=== PATIENT | male | born 1935 | race Caucasian/White ===

== ENCOUNTER 2020-02-05 10:24 | Inpatient (IN) ==
--- NOTE | 2020-02-05 16:00 | History & Physical Report ---
Date of Service February 05, 2020 Assessment & Plan (1) Acute congestive heart failure: Suspect volume overload due to drinking too much water (advised to keep well hydrated for his chemotherapy) in setting of probable tenuous fluid balance from ischemic cardiomyopathy. Unknown EF at time of admission Daily weights, I&Os Fluid restrict 1200ml, Low Na, Heart healthy diet TTE - if ischemic cardiomyopathy confirmed consider switching BB to metoprolol or carvedilol Lasix 40mg IV NOW then preliminary QAM with adjustments depending on renal function (2) Coronary artery disease: Notable history of this with prior CABG. Continue ASA, clopidogrel, atenolol, atorvastatin TTE to assess for ischemic cardiomyopathy as above Troponin negative therefore doubtful new ischemic event leading to heart failure (3) Shortness of breath: as above (4) Hypervolemia: as above (5) Pulmonary edema: as above (6) Hypoxia: as above, aim O2 sats > 94% (7) Urinary frequency: If infection and retention not found suspect this is due to his radiation. US KUB once COVID-19 r/o. Consider anti-spasmodic if these are ruled out. (8) Constipation: MiraLAX BID Colace BID (9) Pancytopenia due to antineoplastic chemotherapy: Monitor CBC Consider transfusion if remains SOB despite diuresis to aim Hgb > 9 (10) Anemia in CKD (chronic kidney disease): Procrit due to Saturday, defer to hematology whether to continue this given MGUS diagnosis (11) MGUS (monoclonal gammopathy of unknown significance): Noted history of this (12) Hematuria: Monitor for gross hematuria that can cause urine retention (13) Urothelial carcinoma of bladder: cT2N0, stage II TURBT (Dr Norton on 10/20/2019) Currently undergoing chemoradiation with Gemcitabine (14) Hyperuricemia: Continue allopurinol 100 mg PO daily Stop HCTZ (using lasix instead for diuresis and BP management) (15) Hypertension: Continue nifedipine, atenolol. Suspect acutely elevated due to hypervolemic state which should improve with Lasix. Hold HCTZ as below. (16) DVT prophylaxis: Patient on dual antiplatelets and Plt 54. THerefore will hold chemical CTE prophylaxis at present. Pt declines SCDs Admission and Anticipated Discharge Date Admission Date: February 05, 2020 History of Present Illness Chief Complaint: Shortness of breath, urinary frequency Primary Care Provider: Ulysses Gardner is an 84 year old male with anemia of renal insufficiency, MGUS, high grade invasive urothelial carcinoma undergoing chemoradiation (Gemcitabine, 2 doses to date) who presented to [facility] ([facility]) with shortness of breath and difficulty passing urine. Bladder scan there showed only 200cc PVR on bladder scan and UA only positive for 3+ blood. KUB showed constipation. He was found to be anemic with Hgb 6.9, Plt 50, Cr 1.3 (at baseline), pro-BNP 6266, CO2 23, Na 128. Because of his multiple medical issues and under Dr Mac for his bladder cancer he was transferred to [facility]. Other scans at [facility]. CTA - no findings to suggest PE, bilateral pleural effusions, small in size with associated compressive atelectasis. Patchy area of ill-defined opacity in the right lung consistent with nonspecific inflammatory process, infectious etiology is not excluded. Extensive atherosclerotic changes, small lymph nodes in the mediastinum and hilar region are below the size which is considered clinical significant. KUB - moderate to large stool in colon. Rt venous doppler - negative for DVT. Currently the patient reports ongoing shortness of breath. Worse on exertion. Associated orthopnea. No chest pain, PND, presyncope, syncope, palpatation, cough, fever, chills, known COVID-19 exposure. He has not received any treatment so far. Reports mildly getting worse since seen in the ER earlier this morning. After COVID-19 was ruled out. Patient was reviewed with his daughter at bedside. She reports he was told to keep well hydrated while undergoing chemotherapy therefore his oral intake has significantly increased over the last 2 weeks. He denies any high amounts of salt in his diet. Allergies Allergy/AdvReac Type Severity Reaction Status Date / Time methotrexate Allergy Severe Rash Verified 02/01/20 16:10 folic acid Allergy Intermediate Rash Verified 02/01/20 16:10 ezetimibe [From Vytorin] AdvReac Intermediate Extreme Verified 02/01/20 16:10 Weakness simvastatin [From Vytorin] AdvReac Intermediate Extreme Verified 02/01/20 16:10 Weakness Sulfa (Sulfonamide AdvReac Intermediate Nauseous Verified 02/01/20 16:10 Antibiotics) Home Medications Home Medications Medication Instructions Recorded Confirmed Type allopurinol 100 mg tablet 100 mg PO DAILY 01/05/20 02/01/20 History aspirin 81 mg tablet,delayed 81 mg PO DAILY 01/05/20 02/01/20 History release atenolol 50 mg tablet 50 mg PO DAILY tab 01/05/20 02/01/20 History atorvastatin 20 mg tablet 20 mg PO DAILY 01/05/20 02/01/20 History calcium carbonate 600 mg calcium 600 mg PO DAILY 01/05/20 02/01/20 History (1,500 mg) tablet cholecalciferol (vitamin D3) 125 125 mcg PO DAILY 01/05/20 02/01/20 History mcg (5,000 unit) capsule clopidogrel 75 mg tablet 75 mg PO DAILY 01/05/20 02/01/20 History docusate sodium 100 mg capsule 100 mg PO BID cap 01/05/20 02/01/20 History epoetin sheree 10,000 unit/mL 1,000 unit/kg SUBCUT .q21 days PRN 01/05/20 02/01/20 History injection solution ml famotidine 40 mg tablet 40 mg PO DAILY tab 01/05/20 02/01/20 History finasteride 5 mg tablet 5 mg PO DAILY 01/05/20 02/01/20 History hydrochlorothiazide 25 mg tablet 25 mg PO DAILY 01/05/20 02/01/20 History nifedipine 60 mg tablet,extended 60 mg PO DAILY 01/05/20 02/01/20 History release prednisone 1 mg tablet 1 mg PO DAILY tab 01/05/20 02/01/20 History tamsulosin 0.4 mg capsule 0.4 mg PO DAILY 01/05/20 02/01/20 History ondansetron HCl 8 mg tablet 8 mg PO Q8H 01/25/20 02/01/20 History prochlorperazine maleate 10 mg 10 mg PO BID PRN 01/25/20 02/01/20 History tablet Past Med/Surg History Medical History (Updated 02/06/20 @ 08:29 by Carlos A Chapa MD) Anemia of chronic renal failure Claudication Coronary artery disease CVA (cerebral vascular accident) 2008 - Patient reports only "mini strokes" Gout Hypertension MGUS (monoclonal gammopathy of unknown significance) Peripheral vascular disease Skin cancer Urothelial carcinoma of bladder Surgical History (Updated 01/05/20 @ 09:35 by Kerline Interiano RN) History of ankle surgery 1950's - Left History of colonoscopy 2017 History of coronary artery bypass graft x 3 in 2009 - [place] History of endarterectomy 1990 History of herniorrhaphy 1976 - [place] History of lip cancer and surgery History of surgery 2019 - In [place] - Exploratory Lap - bladder was putting pressure on kidneys causing kidney failure per patient report Family History (Updated 01/05/20 @ 09:40 by Kerline Interiano RN) Mother , Passed age 92 of old age No problems noted. Father , Passed age 67 of Emphysema / Heart Problems No problems noted. Brother , Passed age 71 of throat cancer No problems noted. Brother , Passed age 76 of abdominal aortic aneurysm No problems noted. Sister No problems noted. Sister Colon cancer Sister , Passed age 78 of multiple health issues No problems noted. Daughter No problems noted. Daughter No problems noted. Daughter No problems noted. Daughter No problems noted. Son No problems noted. Social History (Updated 01/05/20 @ 09:43 by Kerline Interiano RN) Smoking Status: Former smoker packs per day: 0.5; Second Hand Exposure: No; Do You Dip or Chew Tobacco: No; Hx Alcohol Use: No Hx Substance Use: No Preferred Language: Moldovan Communication Ability: Effective Visual Impairment: Limited Hearing Ability: Hard of Hearing [employer] [place] Operator Required: No Beliefs That Will Affect Care: None marital status: Current Living Situation: Family Current Living Situation Comment: Son lives with him current occupational status: retired current occupation: Retired [employer] Worker Other Information That Helps Us Care for You: No Feels Safe at Home: Yes Safety Concerns: Feels Safe At This Time Childhood Exposure to Second-Hand Smoke: Yes (Father smoked in home ) caffeine: No during the past year weight has: remained stable Dental Care, Regularly: No Review of Systems Review of Systems: All systems reviewed & are unremarkable except as noted in HPI & below Gastrointestinal: + constipation; no abdominal pain, no belching, no bloating, no heartburn, no nausea, no vomiting, no dysphagia, no cramping, no blood in stools and no melena Physical Exam Constitutional: well developed; + not well nourished and no acute distress Eyes: PERRL, conjunctivae normal, anicteric sclerae ENMT: external ear and nose normal, oropharynx normal Neck: trachea midline, no thyromegaly Respiratory: able to speak in complete sentences; no respiratory distress, no labored breathing, no retractions, does not use accessory muscles, no cough, normal respiratory pattern and expiratory phase not prolonged Auscultation: + diminished lung sounds (bibasal) and + crackles (fine to mid zone on back); no rales, no rhonchi and no wheezes Cardiovascular: Rate/Rhythm: regular rate and regular rhythm Heart Sounds: no murmur Vessels: + JVD (half way to neck) Extremities: normal capillary refill and + pedal edema (trace left, 1+ right to mid shins); no calf tenderness Gastrointestinal (Abdomen): Inspection/Auscultation: + hypoactive bowel sounds Percussion/Palpation: abdomen soft; abdomen nontender, no guarding and abdomen not rigid Musculoskeletal: no cyanosis or clubbing, extremities motor strength 5/5 Skin: no rashes, warm and dry Neurologic: moves all extremities and awake; no focal motor deficits and not confused Speech / Cognition: normal speech Motor/Sensory: no tremor Psychiatric: A+Ox3, euthymic affect Genitourinary: no CVA tenderness Lymphatic: no cervical or axillary lymphadenopathy Results & Data Results & Data ([facility]) Vital Signs (Past 12 Hours) Vital Signs Temp Pulse Resp BP Pulse Ox 02/05/20 14:47 183/64 H 02/05/20 14:17 36.6 C 64 20 204/53 H 94 Diagnostic Findings XR chest 1V portable IMPRESSION: Interstitial thickening consistent with mild interstitial pulmonary edema. ECG Indication: SOB/dyspnea Rate (beats per minute): 59 Rhythm: sinus bradycardia Findings: + RBBB Comparison ECG Date: no prior available Code Status & VTE Plan Code Status DNR in the event of a cardiac arrest Patient deferred to his daughter (Merry) regarding respiratory arrest and intubation which she would like him to have at present VTE Prophylaxis Plan VTE Prophylaxis will be ordered: No Reason for no VTE drug order: Contraindicated Reason for no VTE mechanical prophylaxis: Refusal of treatmnt by pt PG Care Time/CCT Total # of Minutes Spent Total Time Spent with Patient: Total time spent is greater than 50% in coordination of care (as documented) at patient's floor/unit and/or counseling patient: Coding Level of Care Code 69104 Initial Inpt Care Lvl 3 Diagnoses Acute congestive heart failure I50.9 Coronary artery disease I25.10 Shortness of breath R06.02 Hypervolemia E87.70 Pulmonary edema J81.1 Hypoxia R09.02 Urinary frequency R35.0 Constipation K59.00 Pancytopenia due to antineoplastic chemotherapy D61.810; T45.1X5A Anemia in CKD (chronic kidney disease) N18.9; D63.1 MGUS (monoclonal gammopathy of unknown significance) D47.2 Hematuria R31.9 Urothelial carcinoma of bladder C67.9 Hyperuricemia E79.0 Hypertension I10 DVT prophylaxis Z29.9
[2020-02-05 16:06] LABS: Hematocrit (blood only) 21.9 % (42-52); Hemoglobin 7.8 g/dL (14.0-18.0); Mean Corpuscular Hemoglobin 36.4 pg (25-34); Mean Corpuscular Volume 102.3 fL (80-100); RDW Coefficient of Variation 13.9 % (11.5-14.5); RDW Standard Deviation 51.2 fL (36.4-46.3); Red Blood Count 2.14 M/uL (4.7-6.1); White Blood Count 6.76 K/uL (4.8-10.8)
--- NOTE | 2020-02-05 16:08 | XRay Report ---
XR chest 1V portable CLINICAL HISTORY: Shortness of breath, hypoxia COMPARISON STUDY: PET/CT November 28, 2019. FINDINGS: Note is made of median sternotomy wires and mediastinal surgical clips. There is mild cardi omegaly. No pneumothorax is present. There may be a trace left pleural effusion. Interstitial thicken ing is noted. IMPRESSION: Interstitial thickening consistent with mild interstitial pulmonary edema. ACT 112: Negative or not required by law. Electronically signed by: Steven Dudley M.D. 02/05/2020 4:07 PM
[2020-02-05 16:17] LABS: Mean Corpuscular Hgb Conc 35.6 g/dL (32-36)
[2020-02-05 16:18] LABS: Partial Thromboplastin Ratio 1.2; Partial Thromboplastin Time 32.6 Seconds (21.0-31.0); Prothrombin Time 10.7 Seconds (9.0-12.0)
[2020-02-05 16:25] LABS: Alanine Aminotransferase 24 U/L (12-78); Albumin Level 3.1 gm/dl (3.4-5.0); BUN Creatinine Ratio 28.2 (10-20); Blood Urea Nitrogen 37 mg/dl (7-18); C Reactive Protein 3.43 mg/dl (0-0.29); Carbon Dioxide 25 mmol/L (21-32); Chloride 98 mmol/L (98-107); Creatinine Clr Calc Pharmacy 33.9 ml/min; Est GFR (African American) 56.7; Glucose 97 mg/dl (70-99); Magnesium 1.9 mg/dl (1.8-2.4); Potassium 3.7 mmol/L (3.5-5.1); Sodium 128 mmol/L (136-145)
[2020-02-05 16:32] LABS: Appearance Urine Clear (Clear); Bacteria Urine Automated Negative (Negative); Bilirubin Urine Negative (Negative); Blood Urine 3+ (Negative); Color Urine Yellow; Glucose Urine UA Negative (Negative); Ketones Urine Negative (Negative); Leukocyte Esterase Urine 1+ (Negative); Nitrite Urine Negative (Negative); Protein Urine 1+ (Negative); RBC Urine Automated >30 /hpf (0-4); Specific Gravity Urine 1.017 (1.000-1.030); Urobilinogen Urine Negative (Negative)
[2020-02-05 16:33] LABS: Albumin Globulin Ratio 0.9 (0.9-2); Alkaline Phosphatase 59 U/L (45-117); Aspartate Aminotransferase 15 U/L (15-37); Bilirubin,Total 1.1 mg/dl (0.2-1); Globulin 3.3 gm/dl (2.5-4.0); Iron 88 mcg/dl (35-175); NT Pro B Type Natriuretic Pept 6589 pg/ml (0-1800); Phosphorus 3.6 mg/dl (2.5-4.9); Total Protein 6.4 gm/dl (6.4-8.2); Transferrin 128 mg/dl (200-360); Transferrin Percent Saturation 49 % (20-50); Troponin I < 0.015 ng/ml (0-0.045)
[2020-02-05 16:35] LABS: Folate (Folic Acid) 15.24 ng/ml (>5.38)
[2020-02-05 16:38] LABS: Basophils # (auto) 0.06 K/uL (0-0.2); Basophils % (auto) 0.9 %; Eosinophils # (auto) 0.14 K/uL (0-0.5); Eosinophils % (auto) 2.1 %; Immature Granulocytes # (auto) 0.03 K/uL (0.00-0.02); Immature Granulocytes % (auto) 0.4 %; Lymphocytes # (auto) 0.87 K/uL (1.2-3.4); Lymphocytes % (auto) 12.9 %; Mean Platelet Volume 9.6 fL (7.4-10.4); Monocytes # (auto) 0.16 K/uL (0.11-0.59); Monocytes % (auto) 2.4 %; Neutrophils % (auto) 81.3 %; Platelet Count 54 K/uL (130-400); Platelet Estimate Decreased (Normal); RBC Morphology Unremarkable
[2020-02-05] MEDS ORDERED: ALUMINUM/MAGNESIUM SUSP 30 ML UDC PO PRN (16:51)
[2020-02-05] MEDS ORDERED: ACETAMINOPHEN 325 MG TAB PO PRN (16:51)
[2020-02-05] MEDS ORDERED: ONDANSETRON INJ 2 MG/ML 2 ML VIAL IV PRN (16:51)
[2020-02-05] MEDS ORDERED: FUROSEMIDE 40 MG in SYRINGE 0 ML IV ONE (17:30)
[2020-02-05 17:42] LABS: Adenovirus PCR Not Detected (NotDetected); Bordetella parapertussis PCR Not Detected (NotDetected); Bordetella pertussis PCR Not Detected (NotDetected); Chlamydia pneumoniae PCR Not Detected (NotDetected); Coronavirus 229E PCR Not Detected (NotDetected); Coronavirus HKU1 PCR Not Detected (NotDetected); Coronavirus NL63 PCR Not Detected (NotDetected); Coronavirus OC43PCR Not Detected (NotDetected); Human Metapneumovirus PCR Not Detected (NotDetected); Influenza A PCR Not Detected (NotDetected); Influenza B PCR Not Detected (NotDetected); Mycoplasma pneumoniae PCR Not Detected (NotDetected); Parainfluenza Virus 1 PCR Not Detected (NotDetected); Parainfluenza Virus 2 PCR Not Detected (NotDetected); Parainfluenza Virus 3 PCR Not Detected (NotDetected); Parainfluenza Virus 4 PCR Not Detected (NotDetected); Respiratory Syncytial VirusPCR Not Detected (NotDetected); Rhinovirus/Enterovirus PCR Not Detected (NotDetected)
[2020-02-05] MEDS ORDERED: PROCHLORPERAZINE MALEATE 10 MG TAB PO PRN (19:17)
[2020-02-05] MEDS ORDERED: ONDANSETRON 4 MG OD TAB PO PRN (19:42)
--- NOTE | 2020-02-05 20:54 | Ultrasound Report ---
RENAL ULTRASOUND CLINICAL HISTORY: ?hydronephrosis/retention COMPARISON STUDY: PET/CT November 28, 2019. TECHNIQUE: Sonography of the kidneys and the urinary bladder was performed. FINDINGS: There is no hydronephrosis. The right kidney measures 10.9 x 5.5 x 5.2 cm and the left kidn ey measures 9.5 x 4.5 x 2.5 cm. Note is made of a 1.5 cm right renal cyst. Moderate right and marked left renal atrophy is noted. Bladder is suboptimally assessed given underdistention. Neither ureteral jet was identified. There is mild bladder wall thickening. IMPRESSION: 1. No hydronephrosis. 2. Marked left and moderate right renal atrophy. 3. Mild bladder wall thickening, a nonspecific finding. ACT 112: Negative or not required by law. Electronically signed by: Steven Dudley M.D. 02/05/2020 8:53 PM
[2020-02-05] MEDS: POLYETHYLENE (MIRALAX) 17 GM PACK PO SCH (21:03)
[2020-02-05] MEDS: DOCUSATE SODIUM 100 MG CAP PO SCH (21:04)
[2020-02-05] MEDS ORDERED: POTASSIUM CHLORIDE 20 MEQ TABCR PO STA (21:07)
[2020-02-06 06:23] LABS: Hematocrit (blood only) 20.8 % (42-52); Hemoglobin 7.5 g/dL (14.0-18.0); Mean Corpuscular Hemoglobin 36.4 pg (25-34); Mean Corpuscular Hgb Conc 36.1 g/dL (32-36); Mean Platelet Volume 9.3 fL (7.4-10.4); Platelet Count 52 K/uL (130-400); RDW Coefficient of Variation 13.9 % (11.5-14.5); RDW Standard Deviation 50.7 fL (36.4-46.3); Red Blood Count 2.06 M/uL (4.7-6.1); White Blood Count 5.27 K/uL (4.8-10.8)
[2020-02-06 06:31] LABS: BUN Creatinine Ratio 27.4 (10-20); Creatinine Clr Calc Pharmacy 31.5 ml/min; Est GFR (African American) 51.9; Est GFR (Non-African American) 44.8; Potassium 3.8 mmol/L (3.5-5.1)
[2020-02-06 06:34] LABS: Basophils # (auto) 0.03 K/uL (0-0.2); Basophils % (auto) 0.6 %; Eosinophils # (auto) 0.16 K/uL (0-0.5); Immature Granulocytes # (auto) 0.03 K/uL (0.00-0.02); Immature Granulocytes % (auto) 0.6 %; Lymphocytes # (auto) 1.02 K/uL (1.2-3.4); Lymphocytes % (auto) 19.4 %; Monocytes # (auto) 0.22 K/uL (0.11-0.59); Monocytes % (auto) 4.2 %; Neutrophils # (auto) 3.81 K/uL (1.4-6.5); Neutrophils % (auto) 72.2 %; RBC Morphology Unremarkable
[2020-02-06] MEDS: CHOLECALCIFEROL 1,000 UNITS 25 MCG TAB PO SCH (07:48)
[2020-02-06] MEDS: allopurinoL 100 MG TAB PO SCH (07:48)
[2020-02-06] MEDS: TAMSULOSIN HCL 0.4 MG CAP PO SCH (07:48)
[2020-02-06] MEDS: ATORVASTATIN 20 MG TAB PO SCH (07:48)
[2020-02-06] MEDS: predniSONE 1 MG TAB PO SCH (07:49)
[2020-02-06] MEDS: ATENOLOL 50 MG TABLET PO SCH (07:49)
[2020-02-06] MEDS: POTASSIUM CHLORIDE 20 MEQ TABCR PO SCH (07:49)
[2020-02-06] MEDS: ASPIRIN 81 MG ECTAB PO SCH (07:49)
[2020-02-06] MEDS: CALCIUM CARBONATE 1250MG TAB PO SCH (07:49)
[2020-02-06] MEDS: FINASTERIDE 5 MG TAB PO SCH (07:50)
[2020-02-06] MEDS: CLOPIDOGREL BISULFATE 75 MG TAB PO SCH (07:50)
[2020-02-06] MEDS: FAMOTIDINE 40 MG TABLET PO SCH (07:50)
[2020-02-06] MEDS: DOCUSATE SODIUM 100 MG CAP PO SCH ×2 (07:50→21:38)
[2020-02-06] MEDS: FUROSEMIDE 40 MG in SYRINGE 0 ML IV SCH (07:51)
[2020-02-06] MEDS ORDERED: NIFEdipine EXTENDED REL 30 MG TABCR PO SCH (09:00)
--- NOTE | 2020-02-06 10:14 | XCELERA ---
[id number]
--- NOTE | 2020-02-06 10:15 | Electrocardiogram Report ---
Test Reason : Blood Pressure : / mmHG Vent. Rate : 059 BPM Atrial Rate : 059 BPM P-R Int : 206 ms QRS Dur : 136 ms QT Int : 502 ms P-R-T Axes : 036 -01 015 degrees QTc Int : 496 ms Sinus bradycardia Right bundle branch block Abnormal ECG No previous ECGs available Confirmed by Shay Louise ([id number]) on 02/06/2020 10:15:02 AM Referred By: Sergey Lira Confirmed By:Dionte Louise
[2020-02-06] MEDS: POLYETHYLENE (MIRALAX) 17 GM PACK PO SCH ×2 (10:16→21:38)
[2020-02-06] MEDS ORDERED: NIFEdipine EXTENDED REL 30 MG TABCR PO ONE (16:00)
[2020-02-06] MEDS ORDERED: FUROSEMIDE 40 MG TAB PO ONE (16:15)
--- NOTE | 2020-02-06 21:47 | Hospitalist Progress Note ---
Date of Service February 06, 2020 Assessment & Plan (1) Acute congestive heart failure: Suspect volume overload due to drinking too much water (advised to keep well hydrated for his chemotherapy) in setting of probable tenuous fluid balance from ischemic cardiomyopathy. echo shows that EF is preserved, no wall motion abnormalities, however both atria dilated, likely has stiff ventricles from hypertension Daily weights, I&Os Fluid restrict 1200ml, Low Na, Heart healthy diet responded well to Lasix 40mg IV on 02/04 with over 1.5 liters out, breathing much improved will give additional Lasix 40mg PO today for some trace edema remaining may benefit from low dose daily Lasix on discharge (2) Coronary artery disease: Notable history of this with prior CABG. Continue ASA, clopidogrel, atenolol, atorvastatin TTE with preserved EF, no wall motion abnormalities Troponin negative therefore doubtful new ischemic event leading to heart failure (3) Shortness of breath: as above, due to pulmonary edema completely resolved now COVID negative, no PE at [facility] ED no signs of pneumonia on CXR (4) Hypervolemia: as above resolved (5) Pulmonary edema: as above, resolved (6) Hypoxia: resolved after Lasix, 90% on room air today (7) Urinary frequency: If infection and retention not found suspect this is due to his radiation. US KUB with no significant findings could try medications for OAB but concerned about side effects would defer to urology (8) Constipation: MiraLAX BID Colace BID (9) Pancytopenia due to antineoplastic chemotherapy: Monitor CBC Consider transfusion if Hb drops further, it is 7.[address] Mac tomorrow to discuss (10) Anemia in CKD (chronic kidney disease): Procrit due to Saturday, defer to hematology whether to continue this given MGUS diagnosis may consider transfusion with Lasix if Hb is down to near 7 (11) MGUS (monoclonal gammopathy of unknown significance): Noted history of this (12) Hematuria: Monitor for gross hematuria that can cause urine retention none thus far (13) Urothelial carcinoma of bladder: cT2N0, stage II TURBT (Dr Norton on 10/20/2019) Currently undergoing chemoradiation with Gemcitabine (14) Hyperuricemia: Continue allopurinol 100 mg PO daily Stop HCTZ (using lasix instead for diuresis and BP management) (15) Hypertension: quite elevated all day this afternoon gave extra dose of Nifedipine 30mg and Lasix 40mg PO continue Atenolol 50mg, Nifedipine XL at 90mg in the morning, daily Lasix may need to add DAWIT/ARB tomorrow if BP still high (16) DVT prophylaxis: Patient on dual antiplatelets and Plt 54. THerefore will hold chemical CTE prophylaxis at present. Pt declines SCDs Admission and Anticipated Discharge Date Admission Date: February 05, 2020 Subjective patient says his breathing is much, much better, improved with diuresis after Lasix yesterday reviewed labs, Cr up slightly at 1.4 but based on prior records, the Cr of 1.3 was below baseline, could have been due to volume overload Hb is down slightly from 7.8 to 7.5 patient is eating well, making urine but has some dysuria, he did not improve with Pyridium as outpatient patient says he is done with chemotherapy, no longer wants it, says he is getting too weak spoke with his daughter Merry over the phone she says that she was surprised he even decided to get chemotherapy because he always said he would not but he makes his own medical decisions and he wanted to try it I updated her on his labs and clinical improvement may be ready for d/c tomorrow if he walks well with therapy Review of Systems Review of Systems: All systems reviewed & are unremarkable except as noted in Subjective Respiratory: no cough, no dyspnea and no dyspnea on exertion Cardiovascular: + edema (improved, more on the right leg); no chest pain Gastrointestinal: no abdominal pain, no nausea, no vomiting, no constipation and no diarrhea/loose stools Genitourinary: + dysuria and + urinary frequency; no difficulty urinating and no hematuria Physical Exam Constitutional: well developed, well nourished and + thin; no acute distress Eyes: PERRL, conjunctivae normal, anicteric sclerae ENMT: external ear and nose normal, oropharynx normal Neck: trachea midline, no thyromegaly Respiratory: normal respiratory effort, lungs clear to auscultation Cardiovascular: Rate/Rhythm: regular rate and regular rhythm Heart Sounds: normal S1 and normal S2; no murmur Vessels: no JVD Extremities: normal ca pillary refill and + edema (slight, in legs bilaterally, more in right leg) Gastrointestinal (Abdomen): normal bowel sounds, soft, nontender, no hepatosplenomegaly Musculoskeletal: no cyanosis or clubbing, extremities motor strength 5/5 Skin: no rashes, warm and dry Neurologic: patellar DTR's 2+ bilat, sensation intact and PERRL, EOMI, accommodation nl, no face palsy, no dysarthria Psychiatric: A+Ox3, euthymic affect Lymphatic: no cervical or axillary lymphadenopathy Results & Data Results & Data ([facility]) Vital Signs (Past 12 Hours) Vital Signs Temp Pulse Pulse Resp BP Pulse Ox Pulse Ox 02/06/20 19:19 36.9 C 65 18 188/62 H 90 02/06/20 16:16 64 02/06/20 15:44 36.7 C 65 194/52 H 93 02/06/20 13:28 94 Laboratory Results Laboratory Results - last 24 hr 02/06/20 02/06/20 02/06/20 05:40 05:40 16:11 WBC 5.27 RBC 2.06 L Hgb 7.5 L Hct 20.8 L* MCV 101.0 H MCH 36.4 H MCHC 36.1 H RDW Std Deviation 50.7 H RDW Coeff of Roderick 13.9 Plt Count 52 L MPV 9.3 Immature Gran % (Auto) 0.6 Neut % (Auto) 72.2 Lymph % (Auto) 19.4 Bacon % (Auto) 4.2 Eos % (Auto) 3.0 Baso % (Auto) 0.6 Neut # (Auto) 3.81 Lymph # (Auto) 1.02 L Bacon # (Auto) 0.22 Eos # (Auto) 0.16 Baso # (Auto) 0.03 Immature Gran # (Auto) 0.03 H RBC Morphology Unremarkable Sodium 132 L Potassium 3.8 Chloride 98 Carbon Dioxide 25 Anion Gap 9.0 BUN 39 H Creatinine 1.41 H Est Cr Clr Drug Dosing 31.5 Est GFR ( Amer) 51.9 Est GFR (Non-Af Amer) 44.8 BUN/Creatinine Ratio 27.4 H Glucose 76 POC Glucose 159 H Calcium 8.0 L 02/06/20 20:16 WBC RBC Hgb Hct MCV MCH MCHC RDW Std Deviation RDW Coeff of Roderick Plt Count MPV Immature Gran % (Auto) Neut % (Auto) Lymph % (Auto) Bacon % (Auto) Eos % (Auto) Baso % (Auto) Neut # (Auto) Lymph # (Auto) Bacon # (Auto) Eos # (Auto) Baso # (Auto) Immature Gran # (Auto) RBC Morphology Sodium Potassium Chloride Carbon Dioxide Anion Gap BUN Creatinine Est Cr Clr Drug Dosing Est GFR ( Amer) Est GFR (Non-Af Amer) BUN/Creatinine Ratio Glucose POC Glucose 163 H Calcium Medications Administered Current Inpatient Medications Acetaminophen (Tylenol) 650 mg PO Q4H PRN PRN Reason: Pain or Fever Stop: 03/06/20 16:50 Al Hydrox/Mg Hydrox/Simethicone (Maalox) 15 ml PO Q4H PRN PRN Reason: Dyspepsia Stop: 03/06/20 16:50 Allopurinol (Zyloprim) 100 mg PO DAILY [facility] Stop: 03/07/20 08:59 Last Admin: 02/06/20 07:48 Dose: 100 mg Documented by: Aspirin (Ecotrin Ectab) 81 mg PO DAILY [facility] Stop: 03/07/20 08:59 Last Admin: 02/06/20 07:49 Dose: 81 mg Documented by: Atenolol (Tenormin) 50 mg PO DAILY [facility] Stop: 03/07/20 08:59 Last Admin: 02/06/20 07:49 Dose: 50 mg Documented by: Atorvastatin Calcium (Lipitor) 20 mg PO DAILY [facility] Stop: 03/07/20 08:59 Last Admin: 02/06/20 07:48 Dose: 20 mg Documented by: Calcium Carbonate (Os-Jonas 500) 1,250 mg PO DAILY [facility] Stop: 03/07/20 08:59 Last Admin: 02/06/20 07:49 Dose: 1,250 mg Documented by: Clopidogrel Bisulfate (Plavix) 75 mg PO DAILY [facility] Stop: 03/07/20 08:59 Last Admin: 02/06/20 07:50 Dose: 75 mg Documented by: Docusate Sodium (Colace) 100 mg PO BID [facility] Stop: 03/06/20 20:59 Last Admin: 02/06/20 21:38 Dose: Not Given Documented by: Famotidine (Pepcid) 40 mg PO DAILY [facility] Stop: 03/07/20 08:59 Last Admin: 02/06/20 07:50 Dose: 40 mg Documented by: Finasteride (Proscar) 5 mg PO DAILY [facility] Stop: 03/07/20 08:59 Last Admin: 02/06/20 07:50 Dose: 5 mg Documented by: Furosemide 40 mg/ Syringe 4 mls @ 4 mls/min IV QAM [facility] Stop: 03/07/20 08:59 Last Admin: 02/06/20 07:51 Dose: 4 mls/min Documented by: Nifedipine (Procardia Xl) 90 mg PO DAILY [facility] Stop: 03/08/20 08:59 Ondansetron HCl (Zofran) 4 mg IV Q6H PRN PRN Reason: Nausea Stop: 03/06/20 16:50 Ondansetron HCl (Zofran Odt) 8 mg PO Q8H PRN PRN Reason: Nausea And Vomiting Stop: 03/06/20 19:41 Polyethylene Glycol (Miralax Powder Packet) 17 gm PO BID [facility] Stop: 03/06/20 20:59 Last Admin: 02/06/20 21:38 Dose: Not Given Documented by: Potassium Chloride (Klor-Con M20) 20 meq PO QAM [facility] Stop: 03/07/20 08:59 Last Admin: 02/06/20 07:49 Dose: 20 meq Documented by: Prednisone (Prednisone) 1 mg PO DAILY [facility] Stop: 03/07/20 08:59 Last Admin: 02/06/20 07:49 Dose: 1 mg Documented by: Prochlorperazine (Compazine) 10 mg PO BID PRN PRN Reason: Nausea or vomiting Stop: 03/06/20 19:16 Last Admin: 02/06/20 04:58 Dose: 10 mg Documented by: Tamsulosin HCl (Flomax) 0.4 mg PO DAILY [facility] Stop: 03/07/20 08:59 Last Admin: 02/06/20 07:48 Dose: 0.4 mg Documented by: Vitamin D (Vitamin D3) 5,000 units PO DAILY [facility] Stop: 03/07/20 08:59 Last Admin: 02/06/20 07:48 Dose: 5,000 units Documented by: PG Care Time/CCT Total # of Minutes Spent Total Time Spent: 36 Total Time Spent with Patient: Total time spent is greater than 50% in coordination of care (as documented) at patient's floor/unit and/or counseling patient: Coding Level of Care Code 87644 Subseq Hosp Care Lvl 3 Diagnoses Acute congestive heart failure I50.9 Coronary artery disease I25.10 Shortness of breath R06.02 Hypervolemia E87.70 Pulmonary edema J81.1 Hypoxia R09.02 Urinary frequency R35.0 Constipation K59.00 Pancytopenia due to antineoplastic chemotherapy D61.810; T45.1X5A Anemia in CKD (chronic kidney disease) N18.9; D63.1 MGUS (monoclonal gammopathy of unknown significance) D47.2 Hematuria R31.9 Urothelial carcinoma of bladder C67.9 Hyperuricemia E79.0 Hypertension I10 DVT prophylaxis Z29.9
[2020-02-07] MEDS ORDERED: FUROSEMIDE 40 MG TAB PO SCH
[2020-02-07 05:09] LABS: Hematocrit (blood only) 20.2 % (42-52); Hemoglobin 7.4 g/dL (14.0-18.0); Mean Corpuscular Hemoglobin 36.6 pg (25-34); Mean Corpuscular Hgb Conc 36.6 g/dL (32-36); Mean Platelet Volume 8.9 fL (7.4-10.4); Platelet Count 42 K/uL (130-400); RDW Coefficient of Variation 13.7 % (11.5-14.5); Red Blood Count 2.02 M/uL (4.7-6.1); White Blood Count 4.27 K/uL (4.8-10.8)
[2020-02-07 05:30] LABS: BUN Creatinine Ratio 26.7 (10-20); Calcium 8.6 mg/dl (8.5-10.1); Creatinine Clr Calc Pharmacy 26.9 ml/min; Est GFR (African American) 42.9; Potassium 3.6 mmol/L (3.5-5.1)
[2020-02-07] MEDS: FUROSEMIDE 40 MG in SYRINGE 0 ML IV SCH (07:33)
[2020-02-07] MEDS: POTASSIUM CHLORIDE 20 MEQ TABCR PO SCH (07:34)
[2020-02-07] MEDS: FINASTERIDE 5 MG TAB PO SCH (07:34)
[2020-02-07] MEDS: ASPIRIN 81 MG ECTAB PO SCH (07:34)
[2020-02-07] MEDS: ATENOLOL 50 MG TABLET PO SCH (07:34)
[2020-02-07] MEDS: TAMSULOSIN HCL 0.4 MG CAP PO SCH (07:34)
[2020-02-07] MEDS: CLOPIDOGREL BISULFATE 75 MG TAB PO SCH (07:35)
[2020-02-07] MEDS: CALCIUM CARBONATE 1250MG TAB PO SCH (07:36)
[2020-02-07] MEDS: FAMOTIDINE 40 MG TABLET PO SCH (07:36)
[2020-02-07] MEDS: ATORVASTATIN 20 MG TAB PO SCH (07:36)
[2020-02-07] MEDS: CHOLECALCIFEROL 1,000 UNITS 25 MCG TAB PO SCH (07:36)
[2020-02-07] MEDS: predniSONE 1 MG TAB PO SCH (07:36)
[2020-02-07] MEDS: allopurinoL 100 MG TAB PO SCH (07:36)
[2020-02-07] MEDS: DOCUSATE SODIUM 100 MG CAP PO SCH (07:37)
[2020-02-07] MEDS: POLYETHYLENE (MIRALAX) 17 GM PACK PO SCH (07:37)
[2020-02-07] MEDS ORDERED: SODIUM CHLORIDE 0.9% 250 ML IV PRN (08:36)
[2020-02-07] MEDS ORDERED: NIFEdipine EXTENDED REL 30 MG TABCR PO SCH (09:00)
[2020-02-07] MEDS ORDERED: Nursing to Pharmacy Communication SCH (14:00)
--- NOTE | 2020-02-10 10:27 | Discharge Summary ---
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 with shortness of breath and difficulty passing urine. Bladder scan there showed only 200cc PVR on bladder scan and UA only positive for 3+ blood. KUB showed constipation. He was found to be anemic with Hgb 6.9, Plt 50, Cr 1.3 (at baseline), pro-BNP 6266, CO2 23, Na 128. Because of his multiple medical issues and under Dr Mac for his bladder cancer he was transferred to [facility]. Other scans at [facility]. CTA - no findings to suggest PE, bilateral pleural effusions, small in size with associated compressive atelectasis. Patchy area of ill-defined opacity in the right lung consistent with nonspecific inflammatory process, infectious etiology is not excluded. Extensive atherosclerotic changes, small lymph nodes in the mediastinum and hilar region are below the size which is considered clinical significant. KUB - moderate to large stool in colon. Rt venous doppler - negative for DVT. Currently the patient reports ongoing shortness of breath. Worse on exertion. Associated orthopnea. No chest pain, PND, presyncope, syncope, palpatation, cough, fever, chills, known COVID-19 exposure. He has not received any treatment so far. Reports mildly getting worse since seen in the ER earlier this morning. After COVID-19 was ruled out. Patient was reviewed with his daughter at bedside. She reports he was told to keep well hydrated while undergoing chemotherapy therefore his oral intake has significantly increased over the last 2 weeks. He denies any high amounts of salt in his diet. Principal Diagnosis Acute on chronic heart failure with preserved EF, resolved Discharge Exam Constitutional well developed, well nourished and + thin; no acute distress Eyes PERRL, conjunctivae normal, anicteric sclerae ENMT external ear and nose normal, oropharynx normal Neck trachea midline, no thyromegaly Respiratory normal respiratory effort, lungs clear to auscultation Cardiovascular Rate/Rhythm: regular rate and regular rhythm Heart Sounds: normal S1 and normal S2; no murmur Vessels: no JVD Extremities: normal capillary refill and + edema (slight, in legs bilaterally, more in right leg) Gastrointestinal (Abdomen) normal bowel sounds, soft, nontender, no hepatosplenomegaly Musculoskeletal no cyanosis or clubbing, extremities motor strength 5/5 Skin no rashes, warm and dry Neurologic patellar DTR's 2+ bilat, sensation intact and PERRL, EOMI, accommodation nl, no face palsy, no dysarthria Psychiatric A+Ox3, euthymic affect Lymphatic no cervical or axillary lymphadenopathy Discharge Data Allergies Allergy/AdvReac Type Severity Reaction Status Date / Time methotrexate Allergy Severe Rash Verified 02/01/20 16:10 folic acid Allergy Intermediate Rash Verified 02/01/20 16:10 ezetimibe [From Vytorin] AdvReac Intermediate Extreme Verified 02/01/20 16:10 Weakness simvastatin [From Vytorin] AdvReac Intermediate Extreme Verified 02/01/20 16:10 Weakness Sulfa (Sulfonamide AdvReac Intermediate Nauseous Verified 02/01/20 16:10 Antibiotics) Ordered Studies 02/05/20 18:21 US renal/blad retro comp Urgent Hospital Course (1) Acute congestive heart failure: Suspect volume overload due to drinking too much water (advised to keep well hydrated for his chemotherapy) in setting of probable tenuous fluid balance from ischemic cardiomyopathy. echo shows that EF is preserved, no wall motion abnormalities, however both atria dilated, likely has stiff ventricles from hypertension Daily weights, I&Os Fluid restrict 1200ml, Low Na, Heart healthy diet responded well to Lasix 40mg IV on 02/04 with over 1.5 liters out, breathing much improved received a second dose of Lasix 40mg IV on 02/05 and 02/06, excellent diuresis but now appears euvolemic will discharge home on Lasix 40mg PO daily PRN for weight gain specific instructions provided to weight himself daily in the morning and if weight is up by 2-3 lbs from baseline to take the Lasix will follow up with PCP (2) Coronary artery disease: Notable history of this with prior CABG. Continue ASA, clopidogrel, atenolol, atorvastatin TTE with preserved EF, no wall motion abnormalities Troponin negative therefore doubtful new ischemic event leading to heart failure (3) Shortness of breath: as above, due to pulmonary edema completely resolved now, breathing comfortably on room air COVID negative, no PE at [facility] ED no signs of pneumonia on CXR (4) Hypervolemia: as above resolved (5) Pulmonary edema: as above, resolved (6) Hypoxia: resolved after Lasix, > 90% on room air for two days (7) Urinary frequency: If infection and retention not found suspect this is due to his radiation. US KUB with no significant findings could try medications for OAB but concerned about side effects would defer to urology on follow up he was tried on Pyridium without any relief (8) Constipation: MiraLAX BID Colace BID resolved (9) Pancytopenia due to antineoplastic chemotherapy: Monitor CBC Hb 7.8 on admission, dropped to 7.5 and then 7.4 on 02/[address] Mac over the phone, he recommended to transfuse provided one unit PRBC, tolerated well instructed to take Lasix 40mg PO when he got home due to volume expansion with the transfusion check CBC this week, follow up with Dr. Mac (10) Anemia in CKD (chronic kidney disease): Procrit due to Saturday, defer to hematology whether to continue this given MGUS diagnosis transfused for Hb of 7.4, see above (11) MGUS (monoclonal gammopathy of unknown significance): Noted history of this (12) Hematuria: Monitor for gross hematuria that can cause urine retention none thus far (13) Urothelial carcinoma of bladder: cT2N0, stage II TURBT (Dr Norton on 10/20/2019) Currently undergoing chemoradiation with Gemcitabine (14) Hyperuricemia: Continue allopurinol 100 mg PO daily Stop HCTZ (using lasix instead for diuresis and BP management) (15) Hypertension: quite elevated all day on 02/05 gave extra dose of Nifedipine 30mg and Lasix 40mg PO continue Atenolol 50mg, Nifedipine XL at 90mg in the morning, daily Lasix PRN BP improved on 02/06 in the 160 systolic range which is appropriate with his age (16) DVT prophylaxis: Patient on dual antiplatelets and Plt 54. THerefore will hold chemical CTE prophylaxis at present. Pt declines SCDs Total Time Total Time Spent Total Time Spent (In Minutes): 40 minutes Total Time Includes: Examination of the Patient, Discharge Planning, Medication Reconciliation, Communication With Other Providers (Dr. Mac) and Other (discussed plan of care with his daughter Merry over the phone) Discharge Plan Discharge Items Patient Disposition: Home - Self-Care Reason For Visit: SYMPTOMATIC ANEMIA,SHORTNESS OF BREATH Discharge Diagnosis: Acute heart failure with preserved ejection fraction Symptomatic anemia Anemia due to chemotherapy Condition on Discharge: Good Goals: follow up with lab work this week, results to Dr. Vasquez follow up with Dr. Mac as scheduled better blood pressure control with increased dose of Nifedipine Activity: Resume your previous activity Weightbearing: Full weightbearing Non-emergency contact: Primary Care Provider and Oncologist Call non-emergency contact if: you have any medication questions, your symptoms worsen and you have a fever Follow-up/Referrals: Ulysses Vasquez [Primary Care Provider] - (one week) Diet: Regular Ambulatory Orders: Basic Metabolic Panel (Routine) Timeframe: 1 Week Location: Determined by Patient Ordered By: Sergey Lira Complete Blood Count with Diff (Routine) Timeframe: 1 Week Location: Determined by Patient Ordered By: Sergey Avalos Attending Provider Instructions: Medications: - LASIX: 40mg daily, only take as needed for weight gain / edema, see below - NIFEDIPINE: increased to 90mg daily from 60mg daily Hypertension blood pressure improved by increasing Nifedipine to 90mg daily hydrochlorothiazide has been stopped as likely not helping much with blood pressure continue Atenolol 50mg daily follow a low salt diet Acute shortness of breath, pulmonary edema, volume overload resolved with Lasix IV echocardiogram showed preserved ejection fraction at 65% but ventricles are stiff due to chronic hypertension will order you Lasix 40mg to take as needed for weight gain you should get yourself a scale with digital read out to know specific weight tomorrow morning step on the scale, record this as your baseline weight every morning after you urinate and before you eat/drink step on the scale and write down the weight if the weight is 2-3 lbs above the baseline weight, then take Lasix 40mg PO follow up with your PCP to discuss further for tonight, I want you to take a one time dose of Lasix 40mg PO, this is because you received a unit of blood after lunch the nurse will give you the pill to take when you get home Pancytopenia (low blood counts) due to chemotherapy as well as radiation to the pelvis causing bone marrow suppression Hemoglobin dropped from 7.8 to [address] Mac, transfused one unit red blood cells today follow up CBC in a week with results to Dr. Mac Pending Studies at Discharge: No Stand-Alone Forms: My [facility], Smoking Cessation Medications and DC Order Prescriptions: New nifedipine [Procardia XL] 30 mg Tablet Extended Release 24hr 90 mg PO DAILY 30 Days Qty: 90 RF: 3 furosemide [Lasix] 40 mg tablet 40 mg PO DAILY PRN (Reason: weight gain) Qty: 30 RF: 1 Continued finasteride 5 mg tablet 5 mg PO DAILY RF: 0 cholecalciferol (vitamin D3) 125 mcg (5,000 unit) capsule 125 mcg PO DAILY RF: 0 calcium carbonate 600 mg calcium (1,500 mg) tablet 600 mg PO DAILY RF: 0 allopurinol 100 mg tablet 100 mg PO DAILY RF: 0 aspirin [Adult Aspirin Regimen] 81 mg tablet,delayed release (DR/EC) 81 mg PO DAILY RF: 0 atorvastatin 20 mg tablet 20 mg PO DAILY RF: 0 clopidogrel [Plavix] 75 mg tablet 75 mg PO DAILY RF: 0 tamsulosin 0.4 mg capsule 0.4 mg PO DAILY RF: 0 Procrit 10,000 unit/mL solution 1,000 unit/kg subcut .q21 days PRN (Reason: anemia) RF: 0 atenolol 50 mg tablet 50 mg PO DAILY RF: 0 prednisone 1 mg tablet 1 mg PO DAILY RF: 0 famotidine 40 mg tablet 40 mg PO DAILY RF: 0 docusate sodium [Stool Softener] 100 mg capsule 100 mg PO BID RF: 0 ondansetron HCl [Zofran] 8 mg tablet 8 mg PO Q8H RF: 0 prochlorperazine maleate [Compazine] 10 mg tablet 10 mg PO BID PRNRF: 0 Discontinued hydrochlorothiazide 25 mg tablet 25 mg PO DAILY RF: 0 nifedipine 60 mg tablet extended release 60 mg PO DAILY RF: 0 Discharge Orders: Discharge Order (Routine); Ordered 02/07/20 Ordered By: Sergey Santana/Other Patient Handouts: Anemia and Kidney Disease, Hypertension and Kidney Disease Admission Data Admit Date/Time: 02/05/20 14:08 Attending Provider: Sergey Lira Admit Provider: Sergey Lira Primary Care Provider: Ulysses Vasquez Other Interventions: Discharge Summary Assessment (RN) Last Done: 02/07/20 14:45 Coding Level of Care Code D/C Day Management >30 mins Diagnoses Acute congestive heart failure I50.9 Coronary artery disease I25.10 Shortness of breath R06.02 Hypervolemia E87.70 Pulmonary edema J81.1 Hypoxia R09.02 Urinary frequency R35.0 Constipation K59.00 Pancytopenia due to antineoplastic chemotherapy D61.810; T45.1X5A Anemia in CKD (chronic kidney disease) N18.9; D63.1 MGUS (monoclonal gammopathy of unknown significance) D47.2 Hematuria R31.9 Urothelial carcinoma of bladder C67.9 Hyperuricemia E79.0 Hypertension I10 DVT prophylaxis Z29.9
== END 2020-02-07 16:29 | disposition home or self-care (01) | DRG 291 ==
LOC: 2S 14:08